=== PATIENT | female | born 1985 | race Caucasian/White ===

== ENCOUNTER 2017-10-29 13:00 | Emergency (ER) | payer BC ==
[2017-10-29 14:39] LABS: URINE BLOOD (Dip) POC Trace-intact (NEGATIVE); URINE GLUCOSE (Dip) POC Negative (NEGATIVE); URINE KETONES (Dip) POC Negative (NEGATIVE); URINE LEUKOCYTE EST (Dip) POC 1+ (NEGATIVE); URINE NITRITE (Dip) POC Negative (NEGATIVE); URINE TOTAL PROTEIN POC Negative (NEGATIVE)
[2017-10-29 14:39] LABS: URINE PH (Dip) POC 5.5 (5.0-8.5)
== END 2017-10-29 17:25 | disposition home or self-care (01) ==
LOC: FTE 13:00
DX: O26.891 Other specified pregnancy related conditions, first trimester (principal); R10.2 Pelvic and perineal pain; Z3A.13 13 weeks gestation of pregnancy
CPT/HCPCS: 76856; 81003; 99284-25